=== PATIENT | male | born 1995 | race Two or more races ===

== ENCOUNTER 2023-02-17 09:32 | Emergency (ER) | payer SELFPAY ==
[2023-02-17 10:06] LABS: APPEARANCE,URINE CLEAR (Clear); BILIRUBIN,URINE NEGATIVE (Negative); COLOR,URINE YELLOW (Yellow); GLUCOSE,URINE NEGATIVE (Negative); KETONES,URINE NEGATIVE (Negative); LEUKOCYTE ESTERASE,URINE NEGATIVE (Negative); NITRITE,URINE NEGATIVE (Negative); OCCULT BLOOD,URINE NEGATIVE (Negative); PH,URINE 7.5 (5.0-8.0); PROTEIN,URINE NEGATIVE (Negative); UROBILINOGEN,URINE 0.2 (0.2-1.0)
[2023-02-17 13:34] LABS: C. TRACHOMATIS BY PCR NOT DETECTED; N. GONORRHOEAE BY PCR NOT DETECTED
[2023-02-17] MEDS ORDERED: Ketorolac 60 MG/2 ML SDV IM ONE (14:26)
== END 2023-02-17 15:02 | disposition home or self-care (01) ==
LOC: JD.ED 09:32
DX: S39.012A Strain of muscle, fascia and tendon of lower back, initial encounter (principal); F17.210 Nicotine dependence, cigarettes, uncomplicated; X58.XXXA Exposure to other specified factors, initial encounter
CPT/HCPCS: 81003; 87491; 87591; 96372; 99284; J1885